=== PATIENT | male | born 1995 | race Caucasian/White ===

== ENCOUNTER 2017-02-13 07:23 | Day surgery (SDC) | payer OTHER ==
[~2017-02-13] VITALS: Ht 175.3 cm; Wt 76.0 kg
[2017-02-13] VITALS (11 sets, daily range): BP systolic 106–119; BP diastolic 61–81; PULSE 63–78; RESP 13–20; Ht 175.3 cm; Wt 76.0 kg
[2017-02-13] MEDS ORDERED: FENTAnyl 50 MCG/ML VIAL ONE (09:12)
[2017-02-13] MEDS ORDERED: MIDAZOLAM 1 MG/ML 2 ML INJ ONE (09:12)
--- NOTE | 2017-02-13 09:27 | HPN ---
Date/Time of Note Date/Time of Note DATE: 02/13/17 TIME: 09:26 Interval H&P Admission Note Pt. seen H&P reviewed: No system changes NIKO COPELAND DPM February 13, 2017 09:27
[2017-02-13] MEDS ORDERED: POLYMYXIN/BACITRACIN 1L IRRIG ONE (09:55)
[2017-02-13] MEDS ORDERED: BUPIVACAINE 0.5% (SDV) 30 ML INJ ONE (09:55)
[2017-02-13] MEDS ORDERED: MEPERIDINE 25 MG INJ IV PRN (10:00)
[2017-02-13] MEDS ORDERED: FENTAnyl 50 MCG/ML VIAL IV PRN (10:00)
[2017-02-13] MEDS ORDERED: ONDANSETRON 4 MG INJ IV PRN (10:00)
[2017-02-13] MEDS ORDERED: DIPHENHYDRAMINE 50 MG INJ IV PRN (10:00)
[2017-02-13] MEDS ORDERED: POLYMYXIN/BACITRACIN 1L IRRIG IRR ONE (10:05)
[2017-02-13] MEDS ORDERED: BUPIVACAINE 0.5% 30 ML VIAL INJ ONE (10:05)
[2017-02-13] MEDS ORDERED: CEFAZOLIN 1 GM INJ ONE (10:33)
[2017-02-13] MEDS ORDERED: ONDANSETRON 4 MG INJ ONE (10:33)
[2017-02-13] MEDS ORDERED: LIDOCAINE 2% (SDV) 5 ML INJ ONE (10:33)
[2017-02-13] MEDS ORDERED: PROPOFOL 20 ML ONE (10:33)
[2017-02-13] MEDS ORDERED: HYDROCODONE/APAP (10/325) TAB PO PRN (11:00)
--- NOTE | 2017-02-13 13:41 | RADRPT ---
PROCEDURE: XR Right Foot CLINICAL INDICATION: Postop TECHNIQUE: AP, oblique, and lateral radiographs were submitted. COMPARISON: C-arm study done earlier on the same date. FINDINGS: Osseous structures: Since the previous study, the metal screws been removed from the distal fifth me tatarsal and from the distal aspect of the proximal phalanx of the right fifth toe. There is been s table positioning alignment of the healed distal fifth metatarsal fracture fragments. Joint spaces: There is flattening of the articular surfaces on either side of the proximal interphal angeal joint of the right fifth toe. The joint spaces are otherwise unremarkable. Soft tissues: appear unremarkable. IMPRESSION: 1. Interval removal of the screws seen to the right fifth metatarsal and fifth toe. 2. Stable appearance to the healed distal fifth metatarsal fracture fragments. 3. Flattening of the articular surfaces on either side of the proximal interphalangeal joint of the right fifth toe. Physician Camacho Date Time Electronically viewed and signed by Physician Camacho on 02/13/2017 13:41 /
--- NOTE | 2017-02-13 13:52 | RADRPT ---
PROCEDURE: XR Right Foot CLINICAL INDICATION: Hardware removal TECHNIQUE: 2 portable AP views were obtained of the right foot off the C-arm. COMPARISON: None available FINDINGS: The first image demonstrates a screw internally fixing a distal fifth metatarsal fracture which appe ars healed. A screw is also seen to extend across the proximal interphalangeal joint of the right f ifth toe. The second image demonstrates interval removal of the screws. Fluoro time and radiation d ose were not given. IMPRESSION: 1. Interval removal of the screws through the distal right fifth metatarsal and to the fifth toe. 2. Stable appearance to the healed distal fifth metatarsal fracture. Physician Camacho Date Time Electronically viewed and signed by Physician Camacho on 02/13/2017 13:52 /
== END 2017-02-13 12:38 | disposition home or self-care (01) ==
LOC: SDS 07:23
PROVIDERS: ATTEND Podiatrist Foot & Ankle Surgery
DX: T84.84XA Pain due to internal orthopedic prosthetic devices, implants and grafts, initial encounter (principal); Y83.8 Other surgical procedures as the cause of abnormal reaction of the patient, or of later complication, without mention of misadventure at the time of the procedure; Y92.89 Other specified places as the place of occurrence of the external cause
CPT/HCPCS: 20680; 73620; 73630; 88300; J0690; J2250; J2405; J3010; Z7512; Z7610